=== PATIENT | female | born 1965 | race Caucasian/White ===

== ENCOUNTER 2025-04-23 09:05 | Inpatient (IN) | payer OTHER, SELFPAY ==
[2025-04-09 13:39] VITALS: BMI 29.7
[2025-04-09 13:50] LABS: Hematocrit 40.1 % (37.0-47.0); Hemoglobin 13.7 g/dL (12.0-16.0); Mean Corp Hgb Conc. 34.2 g/dL (33.0-37.0); Mean Corpuscular Hgb 31.5 pg (27.0-31.0); Mean Corpuscular Volume 92.2 fL (81.0-99.0); Mean Platelet Volume 9.3 fL (7.4-10.4); Platelet Count 253 10^3/uL (130-400); Red Blood Cell Count 4.35 10^6/uL (4.20-5.40); Red Cell Dist. Width 13.1 % (11.5-14.5); White Blood Cell Count 8.1 10^3/uL (4.8-10.8)
[2025-04-09 15:03] LABS: ALT (SGPT) 22 U/L (0-35); AST (SGOT) 23 U/L (14-36); Albumin 4.4 g/dl (3.5-5.0); Alkaline Phosphatase 76 U/L (38-126); Blood Urea Nitrogen 20 mg/dl (7-17); Calcium 9.7 mg/dl (8.4-10.2); Carbon Dioxide 28 mmol/L (22-30); Chloride 106 mmol/L (98-107); Estimated Creatinine Clearance 66 ml/min; Glucose 102 mg/dl (70-99); Potassium 4.6 mmol/L (3.5-5.1); Sodium 139 mmol/L (135-145); Total Bilirubin 0.4 mg/dl (0.2-1.3); Total Protein 7.9 g/dl (6.3-8.2); eGFR > 60.00
[2025-04-17 13:19] VITALS: BMI 29.7
[2025-04-23] VITALS (21 sets, daily range): BP systolic 92–145; BP diastolic 59–91; BMI 29.7
[2025-04-23] MEDS: CELEBREX 200 MG PO (09:24)
[2025-04-23] MEDS: LYRICA 150 MG PO (09:24)
[2025-04-23] MEDS: METHOCARBAMOL 1500 MG PO (09:24)
[2025-04-23] MEDS: NORMOSOL-R/PLASMALYTE-A 1000 IV ×2 (09:25→18:40)
[2025-04-23] MEDS: TYLENOL 1000 MG PO ×2 (09:25→21:37)
--- NOTE | 2025-04-23 16:02 | DOWNTIME ---
There was a [employer] Downtime on 04/23/2025 from 1230 to 04/23/2025 at 1550. Downtime documentation of patient's care, including medication administrations, has been reconciled in the electronic record per guidelines. Refer to the
patient's paper chart under the miscellaneous tab to see printed paper medication records and downtime forms.
[2025-04-23] MEDS: ZOFRAN 4 MG IV (16:05)
--- NOTE | 2025-04-23 16:11 | W.PN.UPDATE ---
Update Note
Progress Note Update
Cervical arthritis with myelopathy s/p C3-C6 ACDF w/ Dr Hadley 04/23/25
DVT prophylaxis - b/l SCDs/TEDS
HTN - + parameters - monitor BP
Mild mitral regurgitation
OA
ADHD
Anxiety
Depression
[2025-04-23] MEDS: COMPAZINE 5 MG IV (18:05)
--- NOTE | 2025-04-23 18:43 | TRANSFER ---
pt arrives from PACU in hospital bed aaox3 with stable vitals and c collar in place. pt reports she is comfortable at the moment in time. awaiting meds to be cleared by pharm. IVF initiated per order. admission completed while in PACU. pt with
reported emesis x 200ml while in PACU s/p eating dinner. reports feeling much better after emesis. change of shift report about in progress. plan of care continues to be followed.
[2025-04-23] MEDS: TYLENOL PO (18:50)
[2025-04-23] MEDS: ANCEF 5 IV (20:14)
[2025-04-23] MEDS: SENOKOT 17.2 MG PO (20:15)
[2025-04-23] MEDS: CLARITIN 10 MG PO (20:15)
[2025-04-23] MEDS: COLACE 100 MG PO (20:15)
[2025-04-23] MEDS: PEPCID 20 MG PO (21:37)
[2025-04-23] MEDS: LYRICA 75 MG PO (21:37)
[2025-04-23] MEDS: ROXICODONE 5 MG PO (22:47)
[2025-04-23] MEDS: OCEAN, SALINE MIST 1 SPRAYS NASAL (22:48)
[2025-04-24] VITALS (7 sets, daily range): BP systolic 128–150; BP diastolic 73–97; PULSE 93; O2SAT 94; BMI 29.3
[2025-04-24] MEDS: NORMOSOL-R/PLASMALYTE-A 1000 IV (02:58)
[2025-04-24] MEDS: ANCEF 5 IV (02:58)
[2025-04-24] MEDS: TYLENOL 1000 MG PO ×4 (03:01→20:55)
[2025-04-24] MEDS: ADDERALL 20 MG PO (07:53)
[2025-04-24] MEDS: CLARITIN 10 MG PO (07:53)
[2025-04-24] MEDS: COLACE 100 MG PO ×2 (07:53→20:55)
[2025-04-24] MEDS: WELLBUTRIN XL (24 hour extended release) 300 MG PO (07:53)
[2025-04-24] MEDS: SENOKOT 17.2 MG PO ×2 (07:53→20:55)
[2025-04-24] MEDS: LEXAPRO 20 MG PO (07:53)
[2025-04-24] MEDS: OCEAN, SALINE MIST 50 SPRAYS NASAL (07:54)
[2025-04-24 08:33] LABS: Hemoglobin 12.7 g/dL (12.0-16.0)
--- NOTE | 2025-04-24 09:35 | CM ---
CM met with patient in room. Patient confirmed demographics. Patient lives independently with . Patient does not have a history of VN, SNF or DME. Patient is active with her PCP. Patient uses [facility] for medication services.
Patient confirmed she will use [facility] in [facility] when she is cleared by surgeon.
PLAN: Home with outpatient PT when medically cleared.
[2025-04-24 09:45] LABS: Blood Urea Nitrogen 13 mg/dl (7-17); Carbon Dioxide 29 mmol/L (22-30); Chloride 103 mmol/L (98-107); Estimated Creatinine Clearance 84 ml/min; Glucose 101 mg/dl (70-99); Potassium 4.7 mmol/L (3.5-5.1); Sodium 136 mmol/L (135-145); eGFR > 60.00
--- NOTE | 2025-04-24 10:53 | W.PN.ORTHO ---
Today's Communication / Plan
-
Await PT and OT recs.
D/c later today if clinically stable.
Assessment
.
Distal Motor Intact: Yes
Dressing:
Clean, dry and intact.
Assessment:
Cervical arthritis with myelopathy s/p C3-C6 ACDF w/ [facility] 04/23/25
DVT prophylaxis - b/l SCDs/TEDS
PONV, likely GA induced - pt fortunately feels better w/o intervention
- Will Rx Compazine prn upon d/c
Mild nasal congestion - continue saline mist prn
- Pt looks well otherwise. Is afebrile.
- Can use Mucinex for mucus, Tylenol for sinus discomfort. Pt expresses understanding
HTN - + parameters - BPs overall stable
Mild mitral regurgitation
OA
ADHD
Anxiety
Depression
Plan
.
Surgery / Date: C3-C6 ACDF w/ [facility] 04/23/25
DVT Prophylaxis: Other (b/l SCDs/TEDs)
Activity:
Out of bed.
PT/OT
Discharge Plan: Home
Subjective
.
.:
Patient resting comfortably in bed.
Neck pain tolerable w/ current pain meds. Denies significant sore throat or dysphagia.
1 episode of vomiting this AM, likely GA induced. Pt reportedly feels better w/o intervention.
Mild nasal congestion overnight, improved w/ saline mist.
No other significant complaints. AM labs stable.
Vital Signs and Labs
.
Vital Signs and Labs:
Lab Results
04/24/25 07:15
04/24/25 07:15
Temp Pulse Resp BP Pulse Ox
98.4 F 97 16 132/80 97
04/24/25 07:56 04/24/25 07:56 04/24/25 07:56 04/24/25 07:56 04/24/25 07:56
Physical Exam
-
HEENT: No pallor, cyanosis, or jaundice. Throat clear.
NECK: Supple. + Cervical collar.
RESPIRATORY: Lungs clear to auscultation.
CVS: S1, S2 normal. RRR.�
ABDOMEN: Soft, non-tender. No distension.
EXTREMITIES: Strength equal, no calf pain with palpation/dorsiflexion. Calves soft.
TOP FRAME FITTER: AOx3. No focal deficits. handy man grossly intact
--- NOTE | 2025-04-24 11:09 | W.DS.TRANS ---
DC Summary - Teaching Dietitian
-
Discharge Instructions:
Sleep Apnea Risk Low
Discharge Diagnosis/Procedures Cervical arthritis with myelopathy s/p C3-C6
ACDF w/ Dr Leonie 04/23/25
Diet Regular
Additional Diets Adequate hydration advised to prevent low blood
pressures post-surgery.
Activity As tolerated
Additional Activity No heavy lifting >10 lbs
Driving Restrictions Not until seen by your Dr
Bathing Restrictions OK to shower in 3 days
Instructions:
Stand-Alone Forms: [facility]ervical D/C Inst.
Changes to Home Medications: Yes
Discharge Medications:
DC Medications w/original date entered in [facility] [place]
bupropion HCl 300 mg 24 hr tablet, extended release 300 mg PO DAILY Neurological Condition 04/16/25
dextroamphetamine-amphetamine 20 mg tablet (Adderall) 20 mg PO DAILY Mental Health/Anxiety 04/16/25
diphenhydramine HCl 25 mg capsule (Benadryl) 25 mg PO DAILY PRN allergies 04/16/25
escitalopram oxalate 20 mg tablet 20 mg PO DAILY Mental Health/Anxiety 04/16/25
estradiol 0.05 mg-norethindrone 0.14 mg/24 hr semiwkly transderm patch (CombiPatch) 1 patch transdermal ONCE Hormonal Agent 04/16/25
fexofenadine 180 mg tablet 180 mg PO DAILY Allergies 04/16/25
triamcinolone acetonide 55 mcg nasal spray aerosol (Nasacort Allergy) 1 spray intranasal DAILY allergies 04/16/25
Saccharomyces boulardii 250 mg capsule (Florastor) 250 mg PO BID #10 caps 04/24/25
acetaminophen 500 mg tablet (Tylenol Extra Strength) 1,000 mg (2 x 500 mg) PO Q6H #60 tabs 04/24/25
cephalexin 500 mg capsule 500 mg PO QID #20 caps 04/24/25
docusate sodium 100 mg capsule 100 mg PO BID #30 caps 04/24/25
guaifenesin 600 mg tablet, extended release 12 hr (Mucinex) 600 mg PO Q12H PRN mucus congestion #30 tabs 04/24/25
losartan 25 mg tablet 25 mg PO DAILY Blood Pressure #0 tabs 04/24/25
oxycodone 5 mg tablet 5 - 10 mg (1 - 2 x 5 mg) PO Q6H PRN moderate-severe pain #30 tabs 04/24/25
pantoprazole 40 mg tablet,delayed release (Protonix) 40 mg PO DAILY #30 tabs 04/24/25
pregabalin 75 mg capsule 75 mg PO BID neuropathic pain #15 caps 04/24/25
prochlorperazine maleate 5 mg tablet (Compazine) 5 mg PO Q6H PRN nausea and vomiting #30 tabs 04/24/25
sennosides 8.6 mg tablet (Sachi-alexis) 17.2 mg (2 x 8.6 mg) PO BID #30 tabs 04/24/25
sodium chloride 0.65 % nasal spray aerosol (Saline Nasal) 1 spray intranasal QIDPRN PRN post nasal drip #44 mL 04/24/25
Home Medication Changes
Saccharomyces boulardii 250 mg capsule (Florastor) 250 mg PO BID #10 caps 04/24/25
acetaminophen 500 mg tablet (Tylenol Extra Strength) 1,000 mg (2 x 500 mg) PO Q6H #60 tabs 04/24/25
cephalexin 500 mg capsule 500 mg PO QID #20 caps 04/24/25
docusate sodium 100 mg capsule 100 mg PO BID #30 caps 04/24/25
guaifenesin 600 mg tablet, extended release 12 hr (Mucinex) 600 mg PO Q12H PRN mucus congestion #30 tabs 04/24/25
oxycodone 5 mg tablet 5 - 10 mg (1 - 2 x 5 mg) PO Q6H PRN moderate-severe pain #30 tabs 04/24/25
pantoprazole 40 mg tablet,delayed release (Protonix) 40 mg PO DAILY #30 tabs 04/24/25
pregabalin 75 mg capsule 75 mg PO BID neuropathic pain #15 caps 04/24/25
prochlorperazine maleate 5 mg tablet (Compazine) 5 mg PO Q6H PRN nausea and vomiting #30 tabs 04/24/25
sennosides 8.6 mg tablet (Sachi-alexis) 17.2 mg (2 x 8.6 mg) PO BID #30 tabs 04/24/25
sodium chloride 0.65 % nasal spray aerosol (Saline Nasal) 1 spray intranasal QIDPRN PRN post nasal drip #44 mL 04/24/25
Flomax 0.4 mg p.o. daily #7
Pending Results: No
[2025-04-24] MEDS: FLOMAX 0.4 MG PO ×2 (11:28→20:55)
[2025-04-24] MEDS: LYRICA 75 MG PO (11:28)
--- NOTE | 2025-04-24 11:42 | PTOTSP ---
PATIENT INDEPENDENT AND AMBULATORY WITHOUT A DEVICE ON LEVEL SURFACES WELL ELEVATIONS. PATIENT ATTEMPTING TO URINATE AT START OF SESSION AND WAS UNABLE. RN AWARE. PATIENT ABLE TO PERFORM SIMULATED CAR TRANSFER. PATIENT AND WITHOUT
FURTHER QUESTIONS/CONCERNS REGARDING MOBILITY. PATIENT REQUIRES NO FURTHER P.T. AT THIS TIME.
[2025-04-24] MEDS: NORMOSOL-R/PLASMALYTE-A IV (11:50)
--- NOTE | 2025-04-24 15:13 | PTCARENOTE ---
Addendum entered by Emy Jean RN 04/24/25 15:14:
Pt denies pain/discomfort/urge to void at this time.
Original Note:
Pt with urine retention >500 following void within the past hour. [facility] notified and to call pt to discuss plan of care. Care remains ongoing.
--- NOTE | 2025-04-24 15:53 | CM ---
CM was updated that patient is staying for a void trial. CM will continue to follow for needs.
[2025-04-24] MEDS: PEPCID 20 MG PO (20:55)
[2025-04-24] MEDS: MUCINEX 600 MG PO (20:55)
[2025-04-24] MEDS: ROXICODONE 5 MG PO (20:56)
[2025-04-25] MEDS: ROXICODONE 10 MG PO (02:40)
[2025-04-25] MEDS: TYLENOL 1000 MG PO ×2 (05:40→11:20)
[2025-04-25] MEDS: BENADRYL 25 MG PO (05:40)
[2025-04-25 07:10] VITALS: BP 130/67
[2025-04-25] MEDS: COLACE 100 MG PO (08:20)
[2025-04-25] MEDS: CLARITIN 10 MG PO (08:20)
[2025-04-25] MEDS: WELLBUTRIN XL (24 hour extended release) 300 MG PO (08:20)
[2025-04-25] MEDS: LYRICA 75 MG PO (08:21)
[2025-04-25] MEDS: FLOMAX 0.4 MG PO (08:21)
[2025-04-25] MEDS: ADDERALL 20 MG PO (08:21)
[2025-04-25] MEDS: MUCINEX 600 MG PO (08:21)
[2025-04-25] MEDS: SENOKOT 17.2 MG PO (08:21)
[2025-04-25] MEDS: LEXAPRO 20 MG PO (08:21)
--- NOTE | 2025-04-25 08:27 | W.PN.ORTHO ---
Today's Communication / Plan
-
Monitor voids. Consider urology consult if PVRs still high.
Possible d/c later today.
Assessment
.
Distal Motor Intact: Yes
Dressing:
Clean, dry and intact.
Assessment:
Cervical arthritis with myelopathy s/p C3-C6 ACDF w/ [facility] 04/23/25
DVT prophylaxis - b/l SCDs/TEDS
Post-op urinary retention - pt reports h/o this and a 'shy bladder' overall
- Carlson cath placed POD 1 and d/c POD 2 0600
- Pt has voided this AM. Awaiting bladder scan
- Continue Flomax. Pt reports less straining w/ this medication. Will Rx for d/c use.
PONV, likely GA induced - resolved by POD 2
- Will Rx Compazine prn upon d/c
Mild nasal congestion - improving w/ supportive measures - continue saline mist prn, Mucinex
- Pt looks well otherwise. Is afebrile.
- Can use Tylenol for sinus discomfort. Pt expresses understanding
HTN - + parameters - BPs overall stable
Mild mitral regurgitation
OA
ADHD
Anxiety
Depression
Plan
.
Surgery / Date: C3-C6 ACDF w/ [facility] 04/23/25
DVT Prophylaxis: Other (b/l SCDs/TEDS)
Activity:
Out of bed.
PT/OT
Discharge Plan: Home
Subjective
.
.:
Patient resting comfortably in bed.
Continues with mild nasal congestion, improving w/ Mucinex and saline mist prn.
Post-surgical urinary retention - carlson removed this AM.
Vital Signs and Labs
.
Vital Signs and Labs:
Lab Results
04/24/25 07:15
04/24/25 07:15
Temp Pulse Resp BP Pulse Ox
98.0 F 82 16 130/67 95
04/25/25 07:10 04/25/25 07:10 04/25/25 07:10 04/25/25 07:10 04/25/25 07:10
Physical Exam
-
HEENT: No pallor, cyanosis, or jaundice. Throat clear.
NECK: Supple. + Cervical collar.
RESPIRATORY: Lungs clear to auscultation.
CVS: S1, S2 normal. RRR.�
ABDOMEN: Soft, non-tender. No distension.
EXTREMITIES: Strength equal, no calf pain with palpation/dorsiflexion. Calves soft.
BOARDER STEAM: AOx3. No focal deficits. explosives handler grossly intact
--- NOTE | 2025-04-25 08:40 | W.PN.UPDATE ---
Update Note
Progress Note Update
Received word from RN that patient voided 700 cc this AM and bladder scan was 257 cc.
PVR much improved since yesterday's totals (at one point, 1225 was measured in patient's bladder).
Pt again reports less straining compared to yesterday.
Given patient's progress with Flomax, will plan for d/c today.
Will continue Flomax daily x1 week post-op.
--- NOTE | 2025-04-25 08:49 | CM ---
CM was updated that patient is medically ready for discharge to home. NO needs noted.
PLAN: home no needs.
[2025-04-25 11:06] VITALS: BP 126/75
== END 2025-04-25 12:45 | disposition home or self-care (01) | DRG 472 ==
LOC: 2 SOUTH 09:05
PROVIDERS: Physician Assistant; ADMITTING PHYSICIAN Orthopaedic Surgery Orthopaedic Surgery of the Spine; FAMILY PHYSICIAN Family Medicine
PROC: 0RB30ZZ Excision of Cervical Vertebral Disc, Open Approach (ICD-10-PCS; 2025-04-23)
PROC: 0RG20A0 Fusion of 2 or more Cervical Vertebral Joints with Interbody Fusion Device, Anterior Approach, Anterior Column, Open Approach (ICD-10-PCS; 2025-04-23)
DX: M48.02 Spinal stenosis, cervical region (principal); M47.12 Other spondylosis with myelopathy, cervical region; R33.9 Retention of urine, unspecified; R11.2 Nausea with vomiting, unspecified; R09.81 Nasal congestion; I10 Essential (primary) hypertension; Z88.8 Allergy status to other drugs, medicaments and biological substances
CPT/HCPCS: 36415; 72020; 80048; 80053; 85014; 85018; 85027; 87070; 97162; 97166